=== PATIENT | male | born 1975 | race African-American/Black ===

== ENCOUNTER 2019-08-01 21:52 | Emergency (ER) | payer BC ==
[~2019-08-01] VITALS: Ht 185.4 cm; Wt 117.9 kg
[~2019-08-01 21:52] MED LIST: CIPROFLOXACIN500 M1 PO; FLOMAX0.4 MG PO; IBUPROFEN 600600 M1 PO; IBUPROFEN 800800 M1 PO; NORCO 5-325 TA1 EACH PO; PERCOCET 5-3251 EACH PO; TAMSULOSIN HCL0.4 MG PO; ZOFRAN ODT4 MG PO
[2019-08-01] MEDS ORDERED: PREDNISONE 20 M20 MG PO (23:59)
[2019-08-01] MEDS ORDERED: PEPCID20 MG PO (23:59)
[2019-08-02 00:32] VITALS: BP 137/81
== END 2019-08-02 00:33 | disposition home or self-care (01) ==
LOC: ER 21:52
DX: T78.3XXA Angioneurotic edema, initial encounter (principal); T78.1XXA Other adverse food reactions, not elsewhere classified, initial encounter; F17.200 Nicotine dependence, unspecified, uncomplicated; Z88.8 Allergy status to other drugs, medicaments and biological substances